=== PATIENT | female | born 1995 | race Caucasian/White ===

== ENCOUNTER 2017-09-08 18:59 | Emergency (ER) | payer BC ==
[~2017-09-08] VITALS: Ht 162.6 cm; Wt 61.4 kg
[2017-09-08 19:01] VITALS: TEMP 98.1
[2017-09-08] MEDS ORDERED: PERCOCET 325 MG1 TA2 PO (22:27)
[2017-09-08 22:45] VITALS: BP 122/72; PULSE 85
== END 2017-09-08 22:45 | disposition home or self-care (01) ==
LOC: COL.ER 18:59
DX: S52.611A Displaced fracture of right ulna styloid process, initial encounter for closed fracture (principal); S52.501A Unspecified fracture of the lower end of right radius, initial encounter for closed fracture; F32.9 Major depressive disorder, single episode, unspecified; W00.0XXA Fall on same level due to ice and snow, initial encounter; Y93.21 Activity, ice skating; Y92.330 Ice skating rink (indoor) (outdoor) as the place of occurrence of the external cause
CPT/HCPCS: J2405; J3010

== ENCOUNTER 2024-01-30 11:34 | Emergency (ER) | payer BC ==
[~2024-01-30] VITALS: Ht 162.6 cm; Wt 68.2 kg
[~2024-01-30 11:34] MED LIST: PERCOCET 325 MG1 TA2 PO
[2024-01-30] MEDS ORDERED: Ondansetron 4 MG/2 ML VIAL IV ONE (12:00)
[2024-01-30] MEDS ORDERED: NS 1,000 ML IV ONE (12:00)
[2024-01-30] MEDS ORDERED: fentaNYL 50 MCG/ML 2 ML VIAL IV ONE ×2 (12:00→13:00)
[2024-01-30 12:19] LABS: BASO % 0.4 % (0.0-2.0); EOS # 0.1 K/mm3 (0.0-0.7); GRAN % 56.2 % (42.2-75.2); HEMOGLOBIN 13.1 g/dl (12.5-16.0); LYMPH # 3.1 K/mm3 (1.2-3.4); LYMPH % 34.4 % (20.0-51.0); MEAN CELL VOLUME 91 fl (80.0-100.0); MEAN CORPUSCULAR HEMOGLOBIN 30 pg (27-31); MEAN CORPUSCULAR HGB CONC 33 g/dl (33.0-37.0); MEAN PLATELET VOLUME 9.7 fl (7.4-10.4); MONO # 0.7 K/mm3 (0.1-0.6); MONO % 7.7 % (1.7-9.3); PLATELET COUNT 338 K/mm3 (130-400); RED BLOOD COUNT 4.39 M/mm3 (4.10-5.30); REDCELL DISTRIBUTION WIDTH-CV 12.2 % (11.5-14.5)
[2024-01-30 12:26] LABS: URINE APPEARANCE CLEAR (CLEAR/HAZY); URINE BLOOD TRACE (NEGATIVE); URINE COLOR Dark Yellow (YELLOW); URINE GLUCOSE NEGATIVE (NEGATIVE); URINE KETONE NEGATIVE (NEGATIVE); URINE NITRATE POSITIVE (NEGATIVE); URINE PROTEIN(semi-quant) NEGATIVE (NEGATIVE)
[2024-01-30 12:43] LABS: ALBUMIN 4.6 g/dL (3.5-5.0); BILIRUBIN,TOTAL 0.5 mg/dL (0.2-1.2); C-REACTIVE PROTEIN 0.06 mg/dL (0.00-0.50); CALCIUM 10.1 mg/dL (8.4-10.2); CREATININE, serum 0.78 mg/dL (0.57-1.11); POTASSIUM 3.4 mEq/L (3.5-4.5); TOTAL PROTEIN 7.7 g/dl (6.2-8.1)
[2024-01-30 12:48] LABS: COLLECTION METHOD CLEAN CATCH
[2024-01-30] MEDS ORDERED: Ketorolac 30 MG/ML VIAL IV ONE (13:00)
[2024-01-30] MEDS ORDERED: Iohexol 300 - 100 ML VIAL IV ONE (13:21)
[2024-01-30] MEDS ORDERED: NS 100 ML IV SCH (13:21)
[2024-01-30] MEDS ORDERED: Nitrofurantoin (Mono/Macro) 100 MG CAP PO ONE (14:30)
[2024-01-30] MEDS ORDERED: MACROBID 1100 MG/CAP PO (14:32)
[2024-01-30] MEDS ORDERED: FLOMAX 0.40.4 MG/CAP PO (14:32)
[2024-01-30] MEDS ORDERED: NORCO 325 MG-51 TAB PO (14:32)
[2024-01-30 14:37] VITALS: BP 120/66; PULSE 90; TEMP 98.5
[2024-01-31] MEDS ORDERED: LR 1,000 ML IV SCH (14:30)
[2024-01-31] MEDS ORDERED: HYDROmorphone 2 MG/1 ML VIAL IV PRN (14:30)
[2024-01-31] MEDS ORDERED: fentaNYL 50 MCG/ML 2 ML VIAL IV PRN (14:30)
[2024-01-31] MEDS ORDERED: Ondansetron 4 MG/2 ML VIAL IV PRN (14:30)
[2024-01-31] MEDS ORDERED: hydrALAZINE 20 MG/ML 1 ML VIAL IV PRN (14:30)
[2024-01-31] MEDS ORDERED: Meclizine 25 MG TAB PO SCH (14:30)
[2024-01-31] MEDS ORDERED: CYMBALTA 30MG30 MG PO (17:09)
[2024-01-31] MEDS ORDERED: SLYND4 MG PO (17:18)
== END 2024-01-30 14:53 | disposition home or self-care (01) ==
LOC: COL.ER 11:34
PROVIDERS: Emergency Medicine
DX: N13.2 Hydronephrosis with renal and ureteral calculous obstruction (principal); N39.0 Urinary tract infection, site not specified; Z88.0 Allergy status to penicillin
CPT/HCPCS: J1885; J2405; J3010; J7030; Q9967